=== PATIENT | male | born 1980 | race Caucasian/White ===

== ENCOUNTER 2016-12-05 21:18 | Emergency (ER) | payer OTHER ==
[~2016-12-05] VITALS: Ht 177.8 cm; Wt 108.9 kg
[~2016-12-05 21:18] MED LIST: ATIVAN1 MG PO; CARBAMAZEPINE200 M2 PO; EPITOL; KEFLEX500 MG PO; NORCO 5-325 TA1 EACH PO; PHENERGAN-CODE120 ML PO; PREDNISONE 20 M20 M1 PO; PROMETHAZINE-C120 ML PO; TAMIFLU30 MG PO; TEGRETOL XR200 MG PO; TEGRETOL200 MG PO; VENTOLIN17 GM INH; ZPAK PO
[2016-12-05 21:41] LABS: HEMATOCRIT 41.7 % (42.0-52.0); HEMOGLOBIN 14.4 gm/dL (14.0-18.0); MCH 28.1 pg (26.0-34.0); MCHC 34.6 % (28.0-37.0); MCV 81.2 fL (80.0-100.0); PLATELET COUNT 152 thou/uL (150-400); RBC 5.14 mil/uL (4.50-6.00); RDW 13.5 % (10.5-14.5); WBC 8.3 thou/uL (4.0-11.0)
[2016-12-05 21:45] LABS: MANUAL DIFF YES
[2016-12-05 21:49] LABS: CALCIUM 8.8 mg/dL (8.5-10.1); CREATININE 0.8 mg/dL (0.6-1.3); POTASSIUM 3.8 mmol/L (3.5-5.1)
[2016-12-05 22:31] LABS: ABSOLUTE NEUTROPHILS 6.8 thou/uL (1.4-8.2); ANISOCYTOSIS 1+; POLYCHROMASIA OCCASIONAL; TOTAL CELL COUNT 100
[2016-12-05] MEDS ORDERED: OSELB75 PO (22:55)
[2016-12-05] MEDS ORDERED: IBUPROFEN 600600 M1 PO (22:55)
[2016-12-05 23:17] VITALS: BP 110/59
[2017-01-16] MEDS ORDERED: CARBAMAZEPINE400 M1 PO (22:17)
== END 2016-12-05 23:21 | disposition home or self-care (01) ==
LOC: ER 21:18
PROVIDERS: Nurse Practitioner
DX: J11.1 Influenza due to unidentified influenza virus with other respiratory manifestations (principal); Z90.49 Acquired absence of other specified parts of digestive tract; F10.99 Alcohol use, unspecified with unspecified alcohol-induced disorder

== ENCOUNTER 2018-03-05 20:29 | Emergency (ER) | payer OTHER ==
[~2018-03-05] VITALS: Ht 177.8 cm; Wt 102.1 kg
[~2018-03-05 20:29] MED LIST changes: +CARBAMAZEPINE400 M1 PO; +IBUPROFEN 600600 M1 PO; +OSELB75 PO
[2018-03-05] MEDS ORDERED: [UNRECOGNIZED DRUG - REMARK] (20:35)
[2018-03-05 21:34] LABS: HEMATOCRIT 43.4 % (42.0-52.0); HEMOGLOBIN 14.7 gm/dL (14.0-18.0); MCH 27.2 pg (26.0-34.0); MCHC 33.9 g/dL (28.0-37.0); MCV 80.1 fL (80.0-100.0); PLATELET COUNT 169 thou/uL (150-400); RBC 5.42 mil/uL (4.50-6.00); RDW 13.5 % (10.5-14.5); WBC 14.4 thou/uL (4.0-11.0)
[2018-03-05 21:41] LABS: CALCIUM 8.8 mg/dL (8.5-10.1); POTASSIUM 3.9 mmol/L (3.5-5.1)
[2018-03-05 22:12] LABS: ABSOLUTE NEUTROPHILS 13.7 thou/uL (1.4-8.2)
[2018-03-05 22:13] LABS: ANISOCYTOSIS 1+
[2018-03-05 23:00] VITALS: BP 133/79
== END 2018-03-05 23:02 | disposition home or self-care (01) ==
LOC: ER 20:29
PROVIDERS: Physician Assistant
DX: G40.909 Epilepsy, unspecified, not intractable, without status epilepticus (principal); Z90.49 Acquired absence of other specified parts of digestive tract

== ENCOUNTER 2018-05-19 23:16 | Emergency (ER) | payer OTHER ==
[~2018-05-19] VITALS: Ht 177.8 cm; Wt 99.8 kg
[~2018-05-19 23:16] MED LIST changes: +[UNRECOGNIZED DRUG - REMARK]
[2018-05-19] MEDS ORDERED: TEGRETOL200 MG PO (23:56)
[2018-05-20 00:03] LABS: ABSOLUTE NEUTROPHILS 6.1 thou/uL (1.4-8.2); BASOPHILS 0.8 % (0.0-2.0); EOSINOPHILS 2.1 % (0.0-3.0); HEMATOCRIT 41.5 % (42.0-52.0); HEMOGLOBIN 14.2 gm/dL (14.0-18.0); LYMPHOCYTES 20.8 % (24.0-44.0); MCH 27.5 pg (26.0-34.0); MCHC 34.2 g/dL (28.0-37.0); MCV 80.5 fL (80.0-100.0); PLATELET COUNT 171 thou/uL (150-400); POLYS 71.3 % (36.0-66.0); RBC 5.16 mil/uL (4.50-6.00); RDW 13.9 % (10.5-14.5); WBC 8.6 thou/uL (4.0-11.0)
[2018-05-20 00:17] LABS: CALCIUM 8.9 mg/dL (8.5-10.1); CREATININE 0.9 mg/dL (0.7-1.3); POTASSIUM 3.5 mmol/L (3.5-5.1)
[2018-05-20 00:23] LABS: ALBUMIN 3.7 g/dL (3.4-5.0); DIRECT BILIRUBIN 0.1 mg/dL (<0.1-0.3); TOTAL BILIRUBIN 0.3 mg/dL (<0.1-1.0); TOTAL PROTEIN 7.5 g/dL (6.4-8.2)
[2018-05-20 00:38] LABS: LARGE PLATELETS RARE
[2018-05-20 00:47] VITALS: BP 130/76
== END 2018-05-20 00:49 | disposition home or self-care (01) ==
LOC: ER 23:16
PROVIDERS: Emergency Medicine
DX: R56.9 Unspecified convulsions (principal); Z91.14 Patient's other noncompliance with medication regimen; Z90.49 Acquired absence of other specified parts of digestive tract

== ENCOUNTER 2020-06-20 07:48 | Emergency (ER) | payer OTHER ==
[~2020-06-20] VITALS: Ht 172.7 cm; Wt 95.3 kg
[2020-06-20] MEDS ORDERED: NOHOMEMEDICATIONS (08:04)
[2020-06-20] MEDS ORDERED: DOXYCYCLINE 10100 MG PO (09:13)
[2020-06-20] MEDS ORDERED: PROMETH-CODEIN 65 ML PO (09:13)
[2020-06-20 09:26] VITALS: BP 101/62
== END 2020-06-20 09:26 | disposition home or self-care (01) ==
LOC: ER 07:48
DX: U07.1 COVID-19 (principal); J12.89 Other viral pneumonia; R11.2 Nausea with vomiting, unspecified; Z90.49 Acquired absence of other specified parts of digestive tract

== ENCOUNTER 2020-06-20 18:41 | Emergency (ER) | payer OTHER ==
[~2020-06-20] VITALS: Ht 172.7 cm; Wt 95.3 kg
[~2020-06-20 18:41] MED LIST changes: +DOXYCYCLINE 10100 MG PO; +NOHOMEMEDICATIONS; +PROMETH-CODEIN 65 ML PO
[2020-06-20 20:44] LABS: ABSOLUTE NEUTROPHILS 5.7 thou/uL (1.4-8.2); BASOPHILS 0.5 % (0.0-2.0); EOSINOPHILS 0.1 % (0.0-3.0); HEMATOCRIT 39.7 % (42.0-52.0); HEMOGLOBIN 13.7 gm/dL (14.0-18.0); LYMPHOCYTES 7.7 % (24.0-44.0); MCH 28.3 pg (26.0-34.0); MCHC 34.4 g/dL (28.0-37.0); MCV 82.2 fL (80.0-100.0); MONOCYTES 5.1 % (1.0-8.0); PLATELET COUNT 176 thou/uL (150-400); POLYS 86.6 % (36.0-66.0); RBC 4.84 mil/uL (4.50-6.00); RDW 12.9 % (10.5-14.5); WBC 6.6 thou/uL (4.0-11.0)
[2020-06-20 20:54] LABS: CALCIUM 8.1 mg/dL (8.5-10.1); CREATININE 0.9 mg/dL (0.7-1.3); POTASSIUM 3.5 mmol/L (3.5-5.1)
[2020-06-20 21:00] LABS: ALBUMIN 3.3 g/dL (3.4-5.0); TOTAL BILIRUBIN 0.6 mg/dL (0.2-1.0); TOTAL PROTEIN 7.6 g/dL (6.4-8.2)
[2020-06-20 22:43] VITALS: BP 102/69
== END 2020-06-20 22:44 | disposition home or self-care (01) ==
LOC: ER 18:41
PROVIDERS: Physician Assistant
DX: R50.9 Fever, unspecified (principal); J18.9 Pneumonia, unspecified organism; Z90.49 Acquired absence of other specified parts of digestive tract; Z79.899 Other long term (current) drug therapy